=== PATIENT | female | born 1935 | race African-American/Black ===

== ENCOUNTER 2019-06-12 18:22 | Inpatient (IN) | payer MEDICARE, MEDICAID, OTHER ==
[~2019-06-12] VITALS: Ht 165.1 cm; Wt 55.5 kg
[2019-06-12] MEDS ORDERED: SODIUM CHLORIDE 0.9% 1,000 ML IV ONE (18:32)
[2019-06-12] MEDS ORDERED: LABETALOL 5MG/ML SYR 20 MG/4 ML SYRINGE IV ONE (18:45)
[2019-06-12] MEDS ORDERED: NITR0.4T49 SL (18:47)
[2019-06-12] MEDS ORDERED: FERR325T6 PO (18:47)
[2019-06-12] MEDS ORDERED: ASPI-1393 PO (18:47)
[2019-06-12] MEDS ORDERED: DONE10TA43 PO (18:47)
[2019-06-12] MEDS ORDERED: SITA100T11 PO (18:47)
[2019-06-12] MEDS ORDERED: METF-414 PO (18:47)
[2019-06-12] MEDS ORDERED: ATOR20TA65 PO (18:47)
[2019-06-12] MEDS ORDERED: CARV10CP PO (18:47)
[2019-06-12 18:49] LABS: BASOPHILS % 0.3 % (0.0-2.0); EOSINOPHILS % 0.6 % (0.0-5.0); HEMATOCRIT. 30.1 % (36.0-48.0); HEMOGLOBIN. 9.9 g/dL (12.0-16.0); LYMPHOCYTES % 24.2 % (20.0-50.0); MEAN CORPUSCULAR HEMOGLOBIN 24.2 pg (28.0-32.0); MEAN CORPUSCULAR VOLUME 73.9 fL (81.0-99.0); MEAN PLATELET VOLUME 8.4 fl (7.4-10.4); MONOCYTES % 7.4 % (2.0-8.0); NEUTROPHILS % 67.5 % (40.0-76.0); PLATELET 235 x1000/uL (130-400); RED BLOOD CELL COUNT 4.07 mill/uL (4.2-5.4); RED CELL DISTRIBUTION WIDTH 16.2 % (11.6-14.6)
[2019-06-12] MEDS ORDERED: LORAZEPAM 2MG/ML CPJ ONE (18:50)
[2019-06-12 18:55] LABS: CHLORIDE 111 mEq/L (98-107)
[2019-06-12 18:59] LABS: PARTIAL THROMBOPLASTIN TIME 22.7 sec (23.4-31.0); PROTHROMBIN TIME 10.7 sec (9.6-11.0)
[2019-06-12] MEDS ORDERED: LORAZEPAM 2MG/ML CPJ IV ONE (19:00)
[2019-06-12 19:02] LABS: LDL CHOLESTEROL 41 mg/dL (5-100)
[2019-06-12] MEDS ORDERED: ASPIRIN 325MG EC TABLET PO ONE (19:45)
[2019-06-12] MEDS ORDERED: KCL 20MEQ/100ML PREMIX 100 ML IV ONE (20:15)
[2019-06-12 20:28] LABS: CLARITY URINE CLEAR (CLEAR); COLOR URINE YELLOW (YELLOW); KETONES URINE NEGATIVE (NEGATIVE); LEUKOCYTE ESTERASE URINE NEGATIVE (NEGATIVE); NITRITE URINE NEGATIVE (NEGATIVE); OCCULT BLOOD URINE NEGATIVE (NEGATIVE); PH URINE 5.5 (4.5-8.0); PROTEIN URINE NEGATIVE (NEGATIVE); UROBILINOGEN URINE 0.2 E.U./dL (0.2-1.0)
[2019-06-12] MEDS ORDERED: IOHEXOL-350 100 ML BOTTLE ONE (21:44)
[2019-06-12 22:43] VITALS: BP 98/48
[2019-06-12 22:46] VITALS: BP 121/75
[2019-06-12 23:00] VITALS: BP 117/71
[2019-06-13] VITALS (18 sets, daily range): BP systolic 88–118; BP diastolic 44–89
[2019-06-13] MEDS ORDERED: DEXTROSE 50% WATER 50ML SYRINGE IV PRN (00:30)
[2019-06-13] MEDS ORDERED: HALOPERIDOL LACTATE 5MG/ML VIAL IM SCH (00:33)
[2019-06-13] MEDS: ENOXAPARIN 60MG/0.6ML SYR SUBCUT SCH ×2 (02:05→12:25)
[2019-06-13] MEDS: DEXT 5%/0.45% NACL KCL 20MEQ/L 1,000 ML IV SCH ×2 (02:53→16:13)
[2019-06-13] MEDS ORDERED: LORAZEPAM 2MG/ML CPJ IV PRN ×2 (04:30→22:30)
[2019-06-13] MEDS: BLOOD SUGAR DIAGNOSTIC STRIP TEST SCH ×4 (06:50→20:56)
[2019-06-13] MEDS: INSULIN LISPRO 100 UNITS/ML SUBCUT SCH ×4 (07:25→20:56)
[2019-06-13] MEDS: ASPIRIN 81MG TABLET PO SCH (09:18)
[2019-06-13 11:45] LABS: BG BASE EXCESS -3.2 mmol/L (-2.0-2.0); BG CARBOXYHEMOGLOBIN 0.3 % (0.5-1.5); BG DEOXYHEMOGLOBIN 3.2 % (0.0-5.0); BG FRACTION INSPIRED OXYGEN 21; BG HCO3 ACT 19.8 mmol/L (22.0-26.0); BG METHEMOGLOBIN 0.2 % (0.0-1.5); BG OXYGEN SATURATION 96.8 % (92.0-98.5); BG OXYHEMOGLOBIN 96.3 % (94.0-97.0); BG PCO2 28.7 mmHg (35.0-45.0); BG PH 7.456 (7.350-7.450); BG PO2 96.4 mmHg (75.0-100.0); BG SAMPLE SITE LEFT BRACHIAL; BG TOTAL HEMOGLOBIN 10.4 g/dL (12.0-18.0); BG VENT MODE ROOM AIR
[2019-06-13 13:41] LABS: BASOPHILS % 0.2 % (0.0-2.0); EOSINOPHILS % 0.8 % (0.0-5.0); HEMATOCRIT. 31.9 % (36.0-48.0); HEMOGLOBIN. 10.4 g/dL (12.0-16.0); LYMPHOCYTES % 17.8 % (20.0-50.0); MEAN CORPUSCULAR HEMOGLOBIN 24.3 pg (28.0-32.0); MEAN CORPUSCULAR VOLUME 74.2 fL (81.0-99.0); MEAN PLATELET VOLUME 8.7 fl (7.4-10.4); NEUTROPHILS % 74.2 % (40.0-76.0); PLATELET 245 x1000/uL (130-400); RED CELL DISTRIBUTION WIDTH 16.3 % (11.6-14.6)
[2019-06-13 13:50] LABS: CHLORIDE 110 mEq/L (98-107)
[2019-06-13 13:58] LABS: LDL CHOLESTEROL 44 mg/dL (5-100)
[2019-06-13 13:59] LABS: T4 FREE 0.83 ng/dL (0.76-1.46)
[2019-06-13 14:04] LABS: HDL CHOLESTEROL 67 mg/dL (40-59)
[2019-06-13] MEDS: PIPERACILLIN/TAZOBACTAM 2.25 G in DEXTROSE 5% WATER 50 ML IV SCH ×2 (16:13→20:05)
[2019-06-13 17:07] LABS: *AMPHETAMINES SCREEN URINE NEGATIVE (NEGATIVE); *BARBITURATES SCREEN URINE NEGATIVE (NEGATIVE); *BENZODIAZEPINES SCREEN URINE NEGATIVE (NEGATIVE)
[2019-06-13 17:08] LABS: *COCAINE SCREEN URINE NEGATIVE (NEGATIVE); CANNABINOID URINE SCREEN NEGATIVE (NEGATIVE); METHADONE URINE SCREEN NEGATIVE (NEGATIVE); OPIATES URINE SCREEN PRESUMTIVE POSITIVE (NEGATIVE); PHENCYCLIDINE URINE SCREEN NEGATIVE (NEGATIVE)
[2019-06-13] MEDS ORDERED: HYDRALAZINE 20MG/ML VIAL IV PRN (18:45)
[2019-06-13] MEDS ORDERED: ACETAMINOPHEN 650MG SUPP PR PRN (18:45)
[2019-06-13] MEDS ORDERED: LACTULOSE 20G/30ML UDC PO PRN (18:45)
[2019-06-13] MEDS ORDERED: DIPHENHYDRAMINE 50MG/ML VIAL IV PRN (18:45)
[2019-06-13] MEDS ORDERED: ACETAMINOPHEN 325MG TABLET PO PRN (18:45)
[2019-06-13] MEDS ORDERED: ONDANSETRON HCL 4MG/2ML INJ IV PRN (18:45)
[2019-06-13] MEDS ORDERED: HYDROCODONE/ACETAMINOPHEN 5/325MG TABLET PO PRN (18:56)
[2019-06-13] MEDS ORDERED: POTASSIUM CHLORIDE INJ 40 MEQ in DEXT 5% WATER 500 ML IV NR (20:00)
[2019-06-13 20:45] LABS: CHLORIDE 111 mEq/L (98-107)
[2019-06-14] VITALS (27 sets, daily range): BP systolic 34–154; BP diastolic 19–131
[2019-06-14] MEDS: PIPERACILLIN/TAZOBACTAM 2.25 G in DEXTROSE 5% WATER 50 ML IV SCH ×4 (00:07→18:07)
[2019-06-14] MEDS: DEXT 5%/0.45% NACL KCL 20MEQ/L 1,000 ML IV SCH ×3 (01:01→16:48)
[2019-06-14] MEDS: BLOOD SUGAR DIAGNOSTIC STRIP TEST SCH ×4 (05:53→20:34)
[2019-06-14 06:35] LABS: BASOPHILS % 0.3 % (0.0-2.0); EOSINOPHILS % 0.9 % (0.0-5.0); HEMATOCRIT. 31.7 % (36.0-48.0); HEMOGLOBIN. 10.3 g/dL (12.0-16.0); LYMPHOCYTES % 19.3 % (20.0-50.0); MEAN CORPUSCULAR VOLUME 74.1 fL (81.0-99.0); MEAN PLATELET VOLUME 9.1 fl (7.4-10.4); MONOCYTES % 6.8 % (2.0-8.0); NEUTROPHILS % 72.7 % (40.0-76.0); PLATELET 210 x1000/uL (130-400); RED BLOOD CELL COUNT 4.28 mill/uL (4.2-5.4); RED CELL DISTRIBUTION WIDTH 16.5 % (11.6-14.6)
[2019-06-14] MEDS: INSULIN LISPRO 100 UNITS/ML SUBCUT SCH ×4 (07:20→20:35)
[2019-06-14 07:54] LABS: BG BASE EXCESS -0.5 mmol/L (-2.0-2.0); BG CARBOXYHEMOGLOBIN 0.2 % (0.5-1.5); BG DEOXYHEMOGLOBIN 2.7 % (0.0-5.0); BG FRACTION INSPIRED OXYGEN 21; BG HCO3 ACT 22.7 mmol/L (22.0-26.0); BG METHEMOGLOBIN 0.2 % (0.0-1.5); BG OXYGEN SATURATION 97.3 % (92.0-98.5); BG OXYHEMOGLOBIN 96.9 % (94.0-97.0); BG PCO2 32.3 mmHg (35.0-45.0); BG PH 7.464 (7.350-7.450); BG PO2 98.4 mmHg (75.0-100.0); BG SAMPLE SITE RIGHT RADIAL; BG TOTAL HEMOGLOBIN 11.3 g/dL (12.0-18.0); BG VENT MODE ROOM AIR
[2019-06-14] MEDS: ASPIRIN 81MG TABLET PO SCH (08:59)
[2019-06-14] MEDS ORDERED: ENOXAPARIN 60MG/0.6ML SYR SUBCUT SCH (11:00)
[2019-06-14] MEDS: MULTIVITAMINS,THER W-MINERALS TABLET PO SCH (12:47)
[2019-06-15] VITALS (7 sets, daily range): BP systolic 91–128; BP diastolic 39–75
[2019-06-15] MEDS: PIPERACILLIN/TAZOBACTAM 2.25 G in DEXTROSE 5% WATER 50 ML IV SCH ×2 (00:39→08:05)
[2019-06-15] MEDS: DEXT 5%/0.45% NACL KCL 20MEQ/L 1,000 ML IV SCH (02:49)
[2019-06-15] MEDS: BLOOD SUGAR DIAGNOSTIC STRIP TEST SCH (05:59)
[2019-06-15] MEDS: INSULIN LISPRO 100 UNITS/ML SUBCUT SCH (07:20)
[2019-06-15] MEDS: ASPIRIN 81MG TABLET PO SCH (08:05)
[2019-06-15] MEDS: MULTIVITAMINS,THER W-MINERALS TABLET PO SCH (08:05)
== END 2019-06-15 10:52 | disposition home or self-care (01) | DRG 314 ==
LOC: ER 18:22 → 3WST 20:25 → ENRESERV 21:29
PROVIDERS: ADMIT Internal Medicine; ATTEND Internal Medicine
DX: I95.9 Hypotension, unspecified (principal); I50.43 Acute on chronic combined systolic (congestive) and diastolic (congestive) heart failure; N13.30 Unspecified hydronephrosis; G93.40 Encephalopathy, unspecified; I31.3 Pericardial effusion (noninflammatory); I42.9 Cardiomyopathy, unspecified; F03.90 Unspecified dementia, unspecified severity, without behavioral disturbance, psychotic disturbance, mood disturbance, and anxiety; E87.6 Hypokalemia; I48.91 Unspecified atrial fibrillation; R47.81 Slurred speech; D64.9 Anemia, unspecified; E11.65 Type 2 diabetes mellitus with hyperglycemia; E78.5 Hyperlipidemia, unspecified; E86.0 Dehydration; I11.0 Hypertensive heart disease with heart failure; Z79.84 Long term (current) use of oral hypoglycemic drugs; Z79.899 Other long term (current) drug therapy; Z79.82 Long term (current) use of aspirin
CPT/HCPCS: 36415; 36600; 70496; 70498; 70551; 71045; 76700; 80048; 80061; 80305; 81003; 82140; 82375; 82805; 82962; 83036; 83721; 83735; 84145; 84439; 84443; 84484; 86592; 92610; 93005; 93306; 93970; 97116; 97162; 97166; 99291; A6261; J1630; J1650; J1815; J2060; J2543; J3480; J3490; J7030; J7060; Q9967; A4315

== ENCOUNTER 2022-01-10 11:06 | Emergency (ER) | payer MEDICARE, OTHER ==
[~2022-01-10] VITALS: Ht 167.6 cm; Wt 83.0 kg
[~2022-01-10 11:06] MED LIST: ASPI-1497 PO; ATOR20TA65 PO; CARV10CP PO; DONE10TA43 PO; FERR325T6 PO; METF-414 PO; NITR0.4T49 SL; SITA100T11 PO
[2022-01-10] MEDS ORDERED: SODIUM CHLORIDE 0.9% 1,000 ML IV ONE (11:45)
[2022-01-10 12:11] LABS: BASOPHILS % 0.4 % (0.0-2.0); EOSINOPHILS % 0.2 % (0.0-5.0); HEMATOCRIT. 38.1 % (36.0-48.0); HEMOGLOBIN. 12.1 g/dL (12.0-16.0); LYMPHOCYTES % 24.1 % (20.0-50.0); MEAN CORPUSCULAR HEMOGLOBIN 22.6 pg (28.0-32.0); MEAN CORPUSCULAR VOLUME 71.3 fL (81.0-99.0); MEAN PLATELET VOLUME 9.1 fl (7.4-10.4); MONOCYTES % 6.9 % (2.0-8.0); NEUTROPHILS % 68.4 % (40.0-76.0); PLATELET 244 x1000/uL (130-400); RED BLOOD CELL COUNT 5.34 mill/uL (4.2-5.4); RED CELL DISTRIBUTION WIDTH 15.5 % (11.6-14.6)
[2022-01-10 12:18] LABS: CLARITY URINE CLEAR (CLEAR); COLOR URINE YELLOW (YELLOW); KETONES URINE 1+ (NEGATIVE); LEUKOCYTE ESTERASE URINE 2+ (NEGATIVE); NITRITE URINE NEGATIVE (NEGATIVE); OCCULT BLOOD URINE NEGATIVE (NEGATIVE); PROTEIN URINE NEGATIVE (NEGATIVE); SPECIFIC GRAVITY URINE 1.032 (1.005-1.030); UROBILINOGEN URINE 0.2 E.U./dL (0.2-1.0)
[2022-01-10 12:18] LABS: CHLORIDE 103 mEq/L (98-107)
[2022-01-10 12:22] LABS: ETHANOL BLOOD < 10 mg/dL
[2022-01-10 12:27] LABS: CREATINE KINASE 95 IU/L (26-192)
[2022-01-10 12:55] LABS: *AMPHETAMINES SCREEN URINE NEGATIVE (NEGATIVE); *BARBITURATES SCREEN URINE NEGATIVE (NEGATIVE); *BENZODIAZEPINES SCREEN URINE NEGATIVE (NEGATIVE); *COCAINE SCREEN URINE NEGATIVE (NEGATIVE); METHADONE URINE SCREEN NEGATIVE (NEGATIVE); OPIATES URINE SCREEN NEGATIVE (NEGATIVE); PHENCYCLIDINE URINE SCREEN NEGATIVE (NEGATIVE)
[2022-01-10 12:56] LABS: CANNABINOID URINE SCREEN NEGATIVE (NEGATIVE)
[2022-01-10] MEDS ORDERED: PIPERACILLIN/TAZ 3.375G PREMIX 50 ML IV ONE (13:45)
[2022-01-10] MEDS ORDERED: SODIUM CHLORIDE 0.9% 1000ML BAG (SEPSIS BOLUS) IV NR (13:45)
[2022-01-10] MEDS ORDERED: OLANZAPINE 10 MG/VIAL IM STA (13:48)
[2022-01-10] MEDS ORDERED: OLANZAPINE 10 MG/VIAL IM NR (13:53)
[2022-01-10] MEDS ORDERED: PIPERACILLIN/TAZOBACTAM 3.375G in DEXT 5% WATER 50ML IV NR (14:00)
[2022-01-10] MEDS ORDERED: VANCOMYCIN 1GM PMX (XELLIA) 200 ML IV NR (14:00)
[2022-01-10] MEDS ORDERED: LORAZEPAM 2MG/ML CPJ IV ONE (14:45)
[2022-01-10 16:25] VITALS: BP 163/78
== END 2022-01-10 16:50 | disposition short-term general hospital (02) ==
LOC: ER 11:06 → CANBEDREQ 21:02
DX: N39.0 Urinary tract infection, site not specified (principal); G93.49 Other encephalopathy; R45.1 Restlessness and agitation; E11.22 Type 2 diabetes mellitus with diabetic chronic kidney disease; I13.0 Hypertensive heart and chronic kidney disease with heart failure and stage 1 through stage 4 chronic kidney disease, or unspecified chronic kidney disease; N18.9 Chronic kidney disease, unspecified; I50.43 Acute on chronic combined systolic (congestive) and diastolic (congestive) heart failure; F03.90 Unspecified dementia, unspecified severity, without behavioral disturbance, psychotic disturbance, mood disturbance, and anxiety; I48.91 Unspecified atrial fibrillation; N17.9 Acute kidney failure, unspecified; E78.00 Pure hypercholesterolemia, unspecified; R62.7 Adult failure to thrive; Z68.29 Body mass index [BMI] 29.0-29.9, adult; Z79.84 Long term (current) use of oral hypoglycemic drugs; Z79.01 Long term (current) use of anticoagulants; Z79.82 Long term (current) use of aspirin; Z20.822 Contact with and (suspected) exposure to COVID-19
CPT/HCPCS: 36415; 70450; 71045; 80053; 80305; 80320; 81003; 82550; 83605; 84484; 85025; 87077; 87086; 87186; 87426; 93005; 96361; 96365; 96367; 96372; 96375; 99291; J2060; J2543; J3370; J3490; J7030; J7060; G0480